=== PATIENT | female | born 1990 | race Caucasian/White ===

== ENCOUNTER 2017-10-17 15:35 | Emergency (ER) | payer OTHER ==
[2017-10-17 15:41] VITALS: BP 134/77
--- NOTE | 2017-10-17 16:08 | ED ---
- HPI Summary HPI Summary: 27-year-old female presents with body fluid exposure today. States she placed an IV on a patient and there was blood left in the catheter. she went to place it in the sharps container when she hit the edge of it on the sharp container. Due to saline flushing being attached the blood squirted out onto her face and into her left eye. She immediately washed her left eye. She has no medical conditions. No complaints at this time. She states that the source patient is a low risk patient. She states that he has no history of drug use or ETOH use. source patient medical record number is [id number]. - History of Current Complaint Chief Complaint: EDExposureBodyFluid Stated Complaint: EXPOSURE Time Seen by Provider: 10/17/17 15:52 PMH/Surg Hx/FS Hx/Imm Hx Endocrine/Hematology History: Denies: Hx Diabetes, Hx Thyroid Disease Cardiovascular History: Denies: Hx Hypertension Respiratory History: Denies: Hx Asthma, Hx Chronic Obstructive Pulmonary Disease (COPD) GI History: Denies: Hx Ulcer Infectious Disease History: No Infectious Disease History: Denies: Hx Hepatitis, Hx Human Immunodeficiency Virus (HIV), Traveled Outside the in Last 30 Days - Family History Known Family History: Negative: Diabetes - Social History Alcohol Use: None Substance Use Type: Reports: None Smoking Status (MU): Never Smoked Tobacco Review of Systems Negative: Fever Positive: Other - body fluid exposure eye Negative: Chest Pain Negative: Shortness Of Breath All Other Systems Reviewed And Are Negative: Yes Physical Exam Triage Information Reviewed: Yes Vital Signs On Initial Exam: Initial Vitals Temp Pulse Resp BP Pulse Ox 98 F 76 18 134/77 99 10/17/17 15:37 10/17/17 15:37 10/17/17 15:37 10/17/17 15:37 10/17/17 15:37 Vital Signs Reviewed: Yes Appearance: Positive: Well-Appearing Skin: Positive: Warm, Dry Head/Face: Positive: Normal Head/Face Inspection Eyes: Positive: Normal, EOMI, LITZY, Conjunctiva Clear ENT: Positive: Pharynx normal Respiratory/Lung Sounds: Positive: Clear to Auscultation, Breath Sounds Present Cardiovascular: Positive: Normal, RRR Musculoskeletal: Positive: Normal Neurological: Positive: Normal Psychiatric: Positive: Normal Diagnostics - Vital Signs Vital Signs Temp Pulse Resp BP Pulse Ox 10/17/17 15:37 98 F 76 18 134/77 99 - Laboratory Result Diagrams: 10/17/17 15:52 10/17/17 15:52 Lab Statement: Any lab studies that have been ordered have been reviewed, and results considered in the medical decision making process. [place] Course/Dx - Course Course Of Treatment: 27-year-old female presents with body fluid exposure today. States she placed an IV on a patient and there was blood left in the catheter. she went to place it in the sharps container when she hit the edge of it on the sharp container. Due to saline flushing being attached the blood squirted out onto her face and into her left eye. She immediately washed her left eye. She has no medical conditions. No complaints at this time. She states that the source patient is a low risk patient. She states that he has no history of drug use or ETOH use. normal PE. tetanus was within 10 years. discussed with patient that source patient came back neg so no further treatment needed. - Diagnoses Provider Diagnoses: Employee exposure to body fluids Discharge - Sign-Out/Discharge Documenting (check all that apply): Patient Departure - Discharge Plan Condition: Good Disposition: HOME Referrals: Tod Irvin MD [Primary Care Provider] - Additional Instructions: will call with results Return to ED if develop any new or worsening symptoms - Billing Disposition and Condition Condition: GOOD Disposition: Home
[2017-10-17 16:12] LABS: ABS Basophils 0.1 10^3/ul (0-0.2); ABS Eosinophils 0.3 10^3/ul (0-0.6); ABS Monocytes 0.5 10^3/ul (0-0.8); ABS Neutrophils 4.9 10^3/ul (1.5-7.7); ABS Nucleated RBC 0 10^3/ul; Eosinophil % 3.5 % (0-6); Hematocrit 38 % (35-47); Lymphocyte % 34.2 % (25-47); Mean Corpuscular HGB Conc 35 g/dl (31-36); Mean Corpuscular Hemoglobin 32 pg (27-31); Mean Corpuscular Volume 93 fL (80-97); Mean Platelet Volume 7.2 um3 (7.4-10.4); Nucleated Red Blood Cells % 0.1; Platelet Count 393 10^3/ul (150-450); Red Blood Count 4.04 10^6/ul (4.00-5.40); Red Cell Distribution Width 13 % (10.5-15); White Blood Count 8.8 10^3/ul (3.5-10.8)
[2017-10-17 16:15] LABS: EGFR Non-African American 86.7 (>60)
== END 2017-10-17 17:10 | disposition home or self-care (01) ==
LOC: ED 15:35
DX: Z77.21 Contact with and (suspected) exposure to potentially hazardous body fluids (principal)
CPT/HCPCS: 36415; 80053; 84702; 85025; 86703; 86706; 86803; 87340; 99282